=== PATIENT | male | born 1960 | race Caucasian/White ===

== ENCOUNTER 2017-09-16 16:06 | Emergency (ER) | payer MEDICARE | END 2017-09-16 16:25 | disposition left against medical advice (07) | LOC: MADERS 16:06 | DX: Z53.21 Procedure and treatment not carried out due to patient leaving prior to being seen by health care provider (principal) ==

== ENCOUNTER 2018-03-23 22:33 | Emergency (ER) | payer MEDICARE ==
[~2018-03-23 22:33] MED LIST: Sodium Chloride 0.9% 1,000 ML BAG ONE; Sodium Chloride 0.9% 100 ML BAG ONE
[2018-03-24] MEDS ORDERED: Acetaminophen 500 MG TAB ONE ×2 (00:12→00:14)
[2018-03-24 00:29] LABS: INR-International Normal Ratio 1.1; PTT 40.9 SEC (22.9-36.1); Prothrombin Time 14.6 SEC (12.0-14.7)
[2018-03-24 00:41] LABS: ALT (SGPT) 30 U/L (8-55); AST (SGOT) 26 U/L (5-34); Albumin 2.9 g/dL (3.5-5.0); Alkaline Phosphatase 183 U/L (40-150); Anion Gap 15 mmol/L (10-20); BUN (Urea Nitrogen) 15 mg/dL (8.4-25.7); Bilirubin, Total 0.6 mg/dL (0.2-1.2); Calc. Creatinine Clearance 0 mL/min (70-130); Calcium 8.3 mg/dL (7.8-10.44); Carbon Dioxide 21 mmol/L (22-29); Estimated GFR-MDRD Greater than 90; Globulin 2.9 g/dL (2.4-3.5); Glucose 113 mg/dL (70-105); Potassium 4.1 mmol/L (3.5-5.1); Protein, Total 5.8 g/dL (6.0-8.3); Sodium 137 mmol/L (136-145)
[2018-03-24 00:42] LABS: Chloride 105 mmol/L (98-107)
[2018-03-24 01:02] LABS: Band 7 % (5-11); Hemoglobin 7.9 g/dL (14.0-18.0); Lymphocytes 30 % (21-51); MDiff Complete? YES; Macrocytosis SLIGHT = 6-15 cells (100X) (0-5/hpf); Mean Corpuscular HGB CONC 36.8 g/dL (32.0-36.0); Mean Corpuscular Volume 78.8 fL (78.0-98.0); Mean Platelet Volume 8.1 fL (7.4-10.4); Metamyelocyte 2 % (0-0); Microcytosis SLIGHT = 6-15 cells (100X) (0-5/hpf); Monocytes 18 % (0-10); Neutrophil 39 % (42-75); PLT Morphology Comment Appears Decreased; Platelet Count 26 thou/uL (130-400); Polychromasia SLIGHT = 2-3 cells (100X) (0-2/hpf); RBC Distribution Width 12.2 % (11.5-14.5); RBC Morphology Abnormal; Reactive Lymphocytes 4 % (0-10); Red Blood Cell (RBC) Count 2.74 mill/uL (4.70-6.10)
[2018-03-24 01:28] LABS: Bilirubin Negative (Negative); Blood, Urine Trace (Negative); Clarity Clear (Clear); Glucose, Urine (Dipstick) Negative (Negative); Leukocyte Negative (Negative); Nitrite Negative (Negative); Protein, Urine (Dipstick) 100 mg/dL (Neg-Trace); Specific Gravity, Urine 1.015 (1.005-1.030); Urobilinogen 0.2 mg/dL (0.2-1.0); pH, Urine 5.5 (5.0-9.0)
[2018-03-24 01:37] LABS: Other Microscopic Description TRACE MUCUS; RBC/HPF None Seen HPF (0-3); Squamous Epithelial None Seen HPF (0-3); WBC/HPF None Seen HPF (0-3)
[2018-03-24] MEDS ORDERED: cefTRIAXone\\ROCEPHIN 2 GM VIAL ONE (02:02)
--- NOTE | 2018-03-24 08:07 | RAD ---
PORTABLE CHEST 1 VIEW: Date: 03/23/18 Time: 2339 hours HISTORY: Fever. FINDINGS: The heart size is normal. The right hemidiaphragm is elevated. There is a left upper extremity PICC l ine with tip in the projection of the SVC. No lobar consolidation, pneumothoraces, or pleural effusio ns are seen. IMPRESSION: No evidence of pneumonia. POS: OFF
== END 2018-03-24 03:05 | disposition home or self-care (01) ==
LOC: MADERS 22:33
DX: C92.10 Chronic myeloid leukemia, BCR/ABL-positive, not having achieved remission (principal); D64.9 Anemia, unspecified; I50.9 Heart failure, unspecified; D69.6 Thrombocytopenia, unspecified; G43.909 Migraine, unspecified, not intractable, without status migrainosus; F17.210 Nicotine dependence, cigarettes, uncomplicated; Z79.899 Other long term (current) drug therapy
CPT/HCPCS: 71045; 80053; 81001; 83605; 83880; 85025; 85610; 85652; 85730; 86850; 86900; 86901; 87081; 87086; 87430; 87804; 96365; J0696; J7050

== ENCOUNTER 2018-08-23 18:20 | Emergency (ER) | payer MEDICARE ==
[2018-08-23] MEDS ORDERED: HYDROmorphone 0.5 MG/0.5 ML SYRINGE ONE (19:18)
[2018-08-23] MEDS ORDERED: Sodium Chloride 0.9% 250 ML 250 ML ONE (19:18)
[2018-08-23 19:54] LABS: Anion Gap 16 mmol/L (10-20); BUN (Urea Nitrogen) 10 mg/dL (8.4-25.7); Calc. Creatinine Clearance 0 mL/min (70-130); Calcium 9.1 mg/dL (7.8-10.44); Carbon Dioxide 25 mmol/L (22-29); Chloride 100 mmol/L (98-107); Estimated GFR-MDRD Greater than 90; Glucose 93 mg/dL (70-105); Potassium 4.7 mmol/L (3.5-5.1); Sodium 136 mmol/L (136-145)
--- NOTE | 2018-08-23 19:58 | RAD ---
AP PELVIS: 08/23/18 HISTORY: Pelvic pain. History of leukemia. There is a lucent focus in the right femoral neck more along the lateral side of the femoral neck reg ion. I cannot exclude this as being on the basis of patient's history of leukemia. There is no signs of any fractures. SI joints are symmetric. No diastasis of the symphysis. IMPRESSION: Benign appearing lucency with sclerotic margin involving the right femoral neck. Given the history of leukemia it could be related to patient's leukemia. There is no signs of any fractures. POS: [facility]
[2018-08-23 20:12] LABS: Hemoglobin 7.4 g/dL (14.0-18.0); Mean Corpuscular Hemoglobin 27.7 pg (27.0-31.0); Mean Corpuscular Volume 81.6 fL (78.0-98.0); Red Blood Cell (RBC) Count 2.69 mill/uL (4.70-6.10)
[2018-08-23] MEDS ORDERED: Ketorolac Tromethamine 30 MG/ML VIAL ONE (20:12)
[2018-08-23 20:13] LABS: MDiff Complete? YES; Manual Diff?? YES; Mean Corpuscular HGB CONC 33.9 g/dL (32.0-36.0); Mean Platelet Volume 15.5 fL (7.4-10.4); Platelet Count 15 thou/uL (130-400); RBC Distribution Width 18.4 % (11.5-14.5)
[2018-08-23 20:14] LABS: Eosinophils 1 % (0-10); Lymphocytes 62 % (21-51); Metamyelocyte 1 % (0-0); Monocytes 7 % (0-10); Neutrophil 22 % (42-75); Reactive Lymphocytes 6 % (0-10)
[2018-08-23 20:15] LABS: Nucleated RBC 24 % (0)
[2018-08-23 20:20] LABS: Hypochromia SLIGHT = 6-15 cells (100X) (0-5/hpf); PLT Morphology Comment Appears Decreased; Polychromasia MODERATE = 3-4 cells (100X) (0-2/hpf)
[2018-08-23 20:21] LABS: White Blood Cell (WBC) Count 1.4 thou/uL (4.8-10.8)
[2018-08-23] MEDS ORDERED: Morphine 4 MG/ML VIAL ONE ×2 (20:32→22:31)
== END 2018-08-23 22:46 | disposition short-term general hospital (02) ==
LOC: MADERS 18:20
DX: C95.90 Leukemia, unspecified not having achieved remission (principal); D70.9 Neutropenia, unspecified; G43.909 Migraine, unspecified, not intractable, without status migrainosus; F17.210 Nicotine dependence, cigarettes, uncomplicated; Z79.899 Other long term (current) drug therapy; Z79.891 Long term (current) use of opiate analgesic
CPT/HCPCS: 36415; 72170; 80048; 85025; 96365; 96375; 96376; J1170; J1885; J2270; J7050